=== PATIENT | male | born 1950 | race Caucasian/White ===

== ENCOUNTER 2016-11-10 00:57 | Inpatient (IN) | payer OTHER ==
[~2016-11-10] VITALS: Ht 190.5 cm; Wt 114.3 kg
[2016-11-10 01:36] LABS: PLATELET COUNT 177 x10^3mcL (130-400); RED CELL DISTRIBUTION WIDTH 12.2 % (11.5-14.5)
[2016-11-10 01:38] LABS: BASOPHIL % 4.3 % (0-2)
[2016-11-10 01:45] LABS: CALCIUM 8.6 mg/dL (8.5-10.1); CARBON DIOXIDE 25.5 mmol/L (21-32); CHLORIDE SERUM 106 mmol/L (98-107); GFR1 > 60 mL/min; GLUCOSE SERUM 109 mg/dL (74-106); SODIUM SERUM 142 mmol/L (136-145)
[2016-11-10 01:57] LABS: ALBUMIN 3.7 g/dL (3.4-5.0); ALKALINE PHOSPHATASE 80 U/L (46-116); ALT/SGPT 22 U/L (16-63); AST/SGOT 16 U/L (15-37); BILIRUBIN TOTAL 0.36 mg/dL (0.20-1.00); FREE T4 0.93 ng/dL (0.76-1.46); MAGNESIUM 2.2 mg/dL (1.8-2.4); PHOSPHOROUS 3.2 mg/dL (2.5-4.9); TOTAL PROTEIN, SERUM 7.1 g/dL (6.4-8.2)
[2016-11-10] MEDS ORDERED: ATENOLOL25 MG PO (03:20)
[2016-11-10 05:47] VITALS: BP 146/83
[2016-11-10 06:52] LABS: CHOLESTEROL/HDL RATIO 4.9
[2016-11-10 07:00] LABS: FREE T4 1.03 ng/dL (0.76-1.46); FREE THYROXINE INDEX 2.5 ug/dL (1.4-4.5)
[2016-11-10 07:47] LABS: T3 TOTAL 1.13 ng/mL
[2016-11-10 08:41] LABS: microscopic required? NO
[2016-11-10 08:45] VITALS: BP 109/70
[2016-11-10 08:58] LABS: UA SPECIFIC GRAVITY <=1.005 (1.005-1.035); urine erythrocyte NEGATIVE (NEGATIVE)
[2016-11-10 11:17] LABS: AMPHETAMINE QUAL UR NONE DETECTED (NEG <=1000)
[2016-11-10 13:33] VITALS: BP 121/73
[2016-11-10 17:10] VITALS: BP 106/66
[2016-11-10 21:58] VITALS: BP 109/67
[2016-11-11 05:52] VITALS: BP 114/73
[2016-11-11 05:57] LABS: BASOPHIL % 0.4 % (0-2); PLATELET COUNT 147 x10^3mcL (130-400); RED CELL DISTRIBUTION WIDTH 13.1 % (11.5-14.5)
[2016-11-11 06:21] LABS: CALCIUM 8.3 mg/dL (8.5-10.1); CARBON DIOXIDE 26.4 mmol/L (21-32); CHLORIDE SERUM 110 mmol/L (98-107); CREATININE SERUM 0.9 mg/dL (0.7-1.3); GFR1 > 60 mL/min; GLUCOSE SERUM 105 mg/dL (74-106); MAGNESIUM 2.2 mg/dL (1.8-2.4); POTASSIUM SERUM 4.5 mmol/L (3.5-5.1); SODIUM SERUM 144 mmol/L (136-145)
[2016-11-11 08:00] VITALS: BP 110/63
[2016-11-11 13:10] VITALS: BP 115/74
[2016-11-11 17:40] VITALS: BP 115/73
[2016-11-11] MEDS ORDERED: ECO81 PO (18:58)
[2016-11-11] MEDS ORDERED: LIPI10 PO (18:59)
[2016-11-11] MEDS ORDERED: TEN25 PO (18:59)
[2016-11-11] MEDS ORDERED: PRI20 PO (19:00)
[2016-11-11 20:08] VITALS: BP 115/73
== END 2016-11-11 20:25 | disposition home or self-care (01) | DRG 310 ==
LOC: ED 00:57 → DU 04:20
PROVIDERS: Emergency Medicine; Family Medicine; ADMIT Family Medicine
DX: R00.2 Palpitations (principal); I10 Essential (primary) hypertension; M10.9 Gout, unspecified; E66.9 Obesity, unspecified; K21.9 Gastro-esophageal reflux disease without esophagitis; Z53.29 Procedure and treatment not carried out because of patient's decision for other reasons; Z68.31 Body mass index [BMI] 31.0-31.9, adult; Z79.899 Other long term (current) drug therapy; Z82.49 Family history of ischemic heart disease and other diseases of the circulatory system
CPT/HCPCS: 83880; 84439; J7030; Q0092